=== PATIENT | male | born 1965 | race Caucasian/White ===

== ENCOUNTER 2017-04-14 13:33 | Emergency (ER) | payer MEDICARE, OTHER ==
[~2017-04-14] VITALS: Ht 175.3 cm; Wt 80.0 kg
[2017-04-14] MEDS ORDERED: SODIUM CHLORIDE 0.9% 1,000 ML IV ONE (14:23)
[2017-04-14] MEDS ORDERED: SODIUM CHLORIDE 0.9% 1,000ML IVBOLUS ONE (14:30)
[2017-04-14] MEDS ORDERED: SODIUM CHLORIDE FLUSH 10ML SYR IVF ONE (14:30)
[2017-04-14 14:39] LABS: HEMATOCRIT 41.6 % (39.2-51.8); HEMOGLOBIN 14.4 g/dL (13.7-18.0); WHITE BLOOD COUNT 10.2 x10^3/uL (3.4-10)
[2017-04-14 14:50] LABS: BLOOD UREA NITROGEN 28 mg/dL (7-18)
[2017-04-14 14:54] LABS: IS PT STATUS REG ER OR PRE ER? YES
[2017-04-14 16:39] VITALS: BP 115/72
== END 2017-04-14 16:41 | disposition home or self-care (01) ==
LOC: ED 16:35
DX: E11.22 Type 2 diabetes mellitus with diabetic chronic kidney disease (principal); N18.2 Chronic kidney disease, stage 2 (mild); F17.210 Nicotine dependence, cigarettes, uncomplicated; I25.2 Old myocardial infarction; Z95.5 Presence of coronary angioplasty implant and graft; Z59.0 Homelessness
CPT/HCPCS: 36415; 80048; 82040; 84484; 85025; 93005; 96360; 99285; J7030

== ENCOUNTER 2017-04-16 23:02 | Observation (INO) | payer MEDICARE ==
[~2017-04-16] VITALS: Ht 175.3 cm; Wt 78.1 kg
[2017-04-17] LABS: HEMATOCRIT 42.4 % (39.2-51.8); HEMOGLOBIN 14.8 g/dL (13.7-18.0); WHITE BLOOD COUNT 8.3 x10^3/uL (3.4-10)
[2017-04-17 00:12] LABS: ASPARTATE AMINO TRANSFERASE 22 U/L (15-37); BLOOD UREA NITROGEN 26 mg/dL (7-18)
[2017-04-17 00:25] LABS: ACETAMINOPHEN < 2 mcg/mL (10-30)
[2017-04-17] MEDS ORDERED: BUPR75TA6 PO (01:07)
[2017-04-17] MEDS ORDERED: METF1000 PO (01:08)
[2017-04-17] MEDS ORDERED: GLIP10TA13 PO (01:09)
[2017-04-17] MEDS ORDERED: CARV6.252 PO (01:09)
[2017-04-17] MEDS ORDERED: ATOR-2 PO (01:10)
[2017-04-17] MEDS ORDERED: LOSA25TA5 PO (01:11)
[2017-04-17] MEDS ORDERED: DULO30CA2 PO (01:12)
[2017-04-17] MEDS ORDERED: DIVA500T17 PO (01:13)
[2017-04-17] MEDS ORDERED: ASPI325T17 PO (01:13)
[2017-04-17] MEDS ORDERED: MIRT15TA6 PO (01:15)
[2017-04-17] MEDS ORDERED: OLAN20TA7 PO (01:16)
[2017-04-17 01:44] LABS: DAU SCREEN DISCLAIMER
[2017-04-17] MEDS ORDERED: OLANZAPINE 10 MG TABLET PO PRN (07:00)
[2017-04-17] MEDS ORDERED: HYDROcodone/APAP 5/325 TABLET PO PRN (07:00)
[2017-04-17] MEDS ORDERED: ONDANSETRON ODT 4 MG PO PRN (07:00)
[2017-04-17] MEDS ORDERED: POLYETHYLENE GLYCOL 17 GM PACKET PO PRN (07:00)
[2017-04-17] MEDS ORDERED: NICOTINE 14MG/24 HR PATCH.TD24 TD ONE (07:30)
[2017-04-17] MEDS ORDERED: ASPIRIN 325 MG TABLET ONE (08:28)
[2017-04-17] MEDS: DULOXETINE 30 MG CAPSULE.DR PO SCH (08:33)
[2017-04-17] MEDS: BUPROPION 75 MG TABLET PO SCH ×2 (08:33→21:13)
[2017-04-17] MEDS: LOSARTAN 25MG TABLET PO SCH (08:33)
[2017-04-17] MEDS: DIVALPROEX 500 MG TAB.ER.24H PO SCH ×2 (08:33→21:14)
[2017-04-17] MEDS: CARVEDILOL 6.25 MG TABLET PO SCH ×2 (08:33→21:13)
[2017-04-17] MEDS: ASPIRIN 325 MG TABLET PO SCH (08:33)
[2017-04-17] MEDS ORDERED: SENNA/DOCUSATE TABLET PO SCH (09:00)
[2017-04-17] MEDS: INSULIN ASPART 100 UNITS/ML, PEN SQ-INSULIN SCH ×3 (12:17→21:12)
[2017-04-17 17:43] LABS: PATH.CAST-FLAG NOT PRESENT; SPERM-FLAG NOT PRESENT; SRC-FLAG NOT PRESENT; XTAL-FLAG NOT PRESENT; YLC-FLAG NOT PRESENT
[2017-04-17 19:38] VITALS: BP 128/84
[2017-04-17] MEDS: ATORVASTATIN 80 MG TABLET PO SCH (21:13)
[2017-04-17] MEDS: MIRTAZAPINE 15 MG TAB.RAPDIS PO SCH (21:14)
[2017-04-18 05:10] LABS: HEMATOCRIT 42.1 % (39.2-51.8); HEMOGLOBIN 14.3 g/dL (13.7-18.0); WHITE BLOOD COUNT 7.1 x10^3/uL (3.4-10)
[2017-04-18 05:27] LABS: BLOOD UREA NITROGEN 22 mg/dL (7-18)
[2017-04-18 05:33] LABS: ASPARTATE AMINO TRANSFERASE 14 U/L (15-37)
[2017-04-18] MEDS: INSULIN ASPART 100 UNITS/ML, PEN SQ-INSULIN SCH ×4 (07:00→21:22)
[2017-04-18 08:00] VITALS: BP 155/101
[2017-04-18] MEDS: DIVALPROEX 500 MG TAB.ER.24H PO SCH ×2 (08:53→21:22)
[2017-04-18] MEDS: DULOXETINE 30 MG CAPSULE.DR PO SCH (08:53)
[2017-04-18] MEDS: ASPIRIN 325 MG TABLET PO SCH (08:53)
[2017-04-18] MEDS: LOSARTAN 25MG TABLET PO SCH (08:54)
[2017-04-18] MEDS: SENNA/DOCUSATE TABLET PO SCH (08:54)
[2017-04-18] MEDS: CARVEDILOL 6.25 MG TABLET PO SCH ×2 (08:54→21:22)
[2017-04-18] MEDS: BUPROPION 75 MG TABLET PO SCH ×2 (08:55→21:22)
[2017-04-18 19:42] VITALS: BP 167/95
[2017-04-18] MEDS: MIRTAZAPINE 15 MG TAB.RAPDIS PO SCH (21:00)
[2017-04-18] MEDS: ATORVASTATIN 80 MG TABLET PO SCH (21:22)
[2017-04-19 08:30] VITALS: BP 160/103
[2017-04-19] MEDS: ASPIRIN 325 MG TABLET PO SCH (08:31)
[2017-04-19] MEDS: CARVEDILOL 6.25 MG TABLET PO SCH (08:31)
[2017-04-19] MEDS: DIVALPROEX 500 MG TAB.ER.24H PO SCH (08:31)
[2017-04-19] MEDS: DULOXETINE 30 MG CAPSULE.DR PO SCH (08:31)
[2017-04-19] MEDS: SENNA/DOCUSATE TABLET PO SCH (08:31)
[2017-04-19] MEDS: INSULIN ASPART 100 UNITS/ML, PEN SQ-INSULIN SCH ×3 (08:32→16:44)
[2017-04-19] MEDS: BUPROPION 75 MG TABLET PO SCH (08:41)
[2017-04-19] MEDS: LOSARTAN 25MG TABLET PO SCH (08:42)
== END 2017-04-19 19:05 ==
LOC: ED 23:59 → EDIP 04-17 07:07 → 3E 04-17 08:52
PROVIDERS: ADMIT Hospitalist; ATTEND Hospitalist
DX: R45.851 Suicidal ideations (principal); I10 Essential (primary) hypertension; F31.9 Bipolar disorder, unspecified; F20.9 Schizophrenia, unspecified; E44.0 Moderate protein-calorie malnutrition; E78.5 Hyperlipidemia, unspecified; F17.210 Nicotine dependence, cigarettes, uncomplicated; E11.65 Type 2 diabetes mellitus with hyperglycemia; I25.10 Atherosclerotic heart disease of native coronary artery without angina pectoris; N19 Unspecified kidney failure; I25.2 Old myocardial infarction; Z59.0 Homelessness; Z80.0 Family history of malignant neoplasm of digestive organs; Z82.49 Family history of ischemic heart disease and other diseases of the circulatory system; Z95.5 Presence of coronary angioplasty implant and graft; Z79.82 Long term (current) use of aspirin; Z79.84 Long term (current) use of oral hypoglycemic drugs
CPT/HCPCS: 36415; 80053; 80307; 80329; 81001; 82962; 83036; 83735; 84439; 84443; 85025; 96372; 99285; G0378; G0479; G0480

== ENCOUNTER 2017-05-17 07:19 | Inpatient (IN) | payer MEDICARE ==
[~2017-05-17] VITALS: Ht 175.3 cm; Wt 90.0 kg
[~2017-05-17 07:19] MED LIST: ASPI325T17 PO; ATOR-2 PO; BUPR75TA6 PO; CARV6.252 PO; DIVA500T17 PO; DULO30CA2 PO; GLIP10TA13 PO; LOSA25TA5 PO; METF1000 PO; MIRT15TA6 PO; OLAN20TA7 PO
[2017-05-17] MEDS ORDERED: SODIUM CHLORIDE 0.9% 1,000 ML IV ONE ×2 (07:39→10:59)
[2017-05-17] MEDS ORDERED: SODIUM CHLORIDE FLUSH 10ML SYR IVF ONE (08:00)
[2017-05-17] MEDS ORDERED: SODIUM CHLORIDE 0.9% 1,000ML IVBOLUS ONE ×2 (08:00→09:00)
[2017-05-17 08:26] LABS: HEMATOCRIT 39.4 % (39.2-51.8); HEMOGLOBIN 13.6 g/dL (13.7-18.0)
[2017-05-17 08:31] LABS: PH, VENOUS 7.432 pH (7.320-7.420)
[2017-05-17 08:41] LABS: BLOOD UREA NITROGEN 25 mg/dL (7-18)
[2017-05-17 08:43] LABS: IS PT STATUS REG ER OR PRE ER? YES
[2017-05-17 08:47] LABS: ASPARTATE AMINO TRANSFERASE 13 U/L (15-37)
[2017-05-17 10:09] LABS: DAU SCREEN DISCLAIMER
[2017-05-17 10:21] LABS: PATH.CAST-FLAG NOT PRESENT; SPERM-FLAG NOT PRESENT; SRC-FLAG NOT PRESENT; XTAL-FLAG NOT PRESENT; YLC-FLAG NOT PRESENT
[2017-05-17] MEDS ORDERED: SODIUM CHLORIDE FLUSH 10ML SYR IVF PRN (11:00)
[2017-05-17] MEDS ORDERED: ONDANSETRON 2MG/ML, 2ML IVPush PRN (12:00)
[2017-05-17] MEDS ORDERED: AZITHROMYCIN 500 MG in SODIUM CHLORIDE 0.9% 250 ML IV ONE (12:00)
[2017-05-17] MEDS ORDERED: GUAIFENESIN/DM 200-20MG, 10ML UDC PO PRN (12:00)
[2017-05-17] MEDS ORDERED: morphine SULFATE 10 MG/ML, 1ML IVPush PRN (12:00)
[2017-05-17] MEDS ORDERED: ONDANSETRON ODT 4 MG PO PRN (12:00)
[2017-05-17] MEDS ORDERED: LABETALOL 5MG/ML, 20ML IVPush PRN (12:00)
[2017-05-17] MEDS ORDERED: ENOXAPARIN 40 MG/0.4 ML ONE (12:08)
[2017-05-17] MEDS: ENOXAPARIN 40 MG/0.4 ML SQ SCH (12:15)
[2017-05-17 12:29] LABS: IS PT STATUS REG ER OR PRE ER? YES
[2017-05-17 14:38] VITALS: BP 126/87
[2017-05-17] MEDS: SODIUM CHLORIDE 0.9% 1,000 ML IV SCH (14:55)
[2017-05-17 15:41] VITALS: BP 133/88
[2017-05-17 18:37] LABS: IS PT STATUS REG ER OR PRE ER? NO
[2017-05-17 18:43] VITALS: BP 139/90
[2017-05-17] MEDS ORDERED: TRIAMCINOLONE OINT 0.025%, 15GM TP PRN (20:30)
[2017-05-17] MEDS ORDERED: ATORVASTATIN 80 MG TABLET PO SCH (21:00)
[2017-05-17] MEDS ORDERED: ACETAMINOPHEN 325 MG TABLET PO PRN ×2 (22:00→22:30)
[2017-05-17] MEDS: DIVALPROEX 500 MG TAB.ER.24H PO SCH (22:21)
[2017-05-17] MEDS: TRIAMCINOLONE CRM 0.025%, 15GM TP PRN (22:21)
[2017-05-17] MEDS: CARVEDILOL 6.25 MG TABLET PO SCH (22:21)
[2017-05-18] MEDS: SODIUM CHLORIDE 0.9% 1,000 ML IV SCH ×2 (01:05→11:34)
[2017-05-18 02:33] VITALS: BP 141/94
[2017-05-18 05:47] LABS: HEMATOCRIT 33.4 % (39.2-51.8); HEMOGLOBIN 11.4 g/dL (13.7-18.0)
[2017-05-18 05:57] LABS: BLOOD UREA NITROGEN 18 mg/dL (7-18)
[2017-05-18 06:00] LABS: ASPARTATE AMINO TRANSFERASE 10 U/L (15-37)
[2017-05-18] MEDS ORDERED: REGADENOSON 0.4 MG/5 ML SYRINGE ONE (08:30)
[2017-05-18 09:00] VITALS: BP 166/102
[2017-05-18] MEDS ORDERED: SENNA/DOCUSATE TABLET PO SCH (09:00)
[2017-05-18] MEDS ORDERED: OLANZAPINE 10 MG TABLET PO SCH (09:00)
[2017-05-18] MEDS ORDERED: DULOXETINE 30 MG CAPSULE.DR PO SCH (09:00)
[2017-05-18] MEDS: CARVEDILOL 6.25 MG TABLET PO SCH (10:17)
[2017-05-18] MEDS: DIVALPROEX 500 MG TAB.ER.24H PO SCH (10:18)
[2017-05-18] MEDS: TRIAMCINOLONE CRM 0.025%, 15GM TP PRN (10:27)
[2017-05-18] MEDS: ENOXAPARIN 40 MG/0.4 ML SQ SCH (11:33)
[2017-05-18] MEDS ORDERED: GLIP5TAB10 PO (13:24)
[2017-05-18] MEDS ORDERED: TAMS-11 PO (13:32)
[2017-05-18] MEDS ORDERED: CEFD300C37 PO (13:32)
[2017-05-18] MEDS ORDERED: TAMSULOSIN 0.4 MG CAP.ER.24H PO ONE (14:00)
[2017-05-18 14:28] VITALS: BP_SYST 155; BP_SYST 156; BP_DIAS 68; BP_DIAS 97
== END 2017-05-18 17:38 | disposition home or self-care (01) | DRG 291 ==
LOC: ED 07:42 → EDIP 11:18 → 4WST 13:11
PROVIDERS: ADMIT Hospitalist; ATTEND Hospitalist
DX: I11.0 Hypertensive heart disease with heart failure (principal); N17.0 Acute kidney failure with tubular necrosis; E11.65 Type 2 diabetes mellitus with hyperglycemia; E86.0 Dehydration; E44.1 Mild protein-calorie malnutrition; D64.9 Anemia, unspecified; E11.9 Type 2 diabetes mellitus without complications; F20.9 Schizophrenia, unspecified; H70.91 Unspecified mastoiditis, right ear; I50.30 Unspecified diastolic (congestive) heart failure; E78.5 Hyperlipidemia, unspecified; I10 Essential (primary) hypertension; Z68.29 Body mass index [BMI] 29.0-29.9, adult; F17.210 Nicotine dependence, cigarettes, uncomplicated; F31.9 Bipolar disorder, unspecified; I25.10 Atherosclerotic heart disease of native coronary artery without angina pectoris; I65.23 Occlusion and stenosis of bilateral carotid arteries; J06.9 Acute upper respiratory infection, unspecified; J32.9 Chronic sinusitis, unspecified; J40 Bronchitis, not specified as acute or chronic; Z79.82 Long term (current) use of aspirin; Z80.0 Family history of malignant neoplasm of digestive organs; Z82.49 Family history of ischemic heart disease and other diseases of the circulatory system; Z90.49 Acquired absence of other specified parts of digestive tract; Z88.8 Allergy status to other drugs, medicaments and biological substances
CPT/HCPCS: 36415; 70450; 70551; 71010; 76770; 78452; 80053; 80061; 80307; 81001; 82010; 82570; 82803; 83036; 84300; 84484; 85025; 93005; 93017; 93306; 93880; 96361; 96372; 96374; J0456; J1650; J2785; A9502; C9898; G0479; J7030; J7050